=== PATIENT | female | born 1985 | race Hispanic/Latino ===

== ENCOUNTER 2021-12-05 19:41 | Emergency (ER) | payer OTHER, SELFPAY ==
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
[2021-12-05 20:02] VITALS: BP 134/67; PULSE 82; RESP 20; TEMP 37; O2SAT 99
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
== END 2021-12-05 21:10 | disposition home or self-care (01) ==
PROVIDERS: Emergency Provider Nurse Practitioner Family
DX: S63.502A Unspecified sprain of left wrist, initial encounter (principal); S66.912A Strain of unspecified muscle, fascia and tendon at wrist and hand level, left hand, initial encounter; V18.4XXA Pedal cycle driver injured in noncollision transport accident in traffic accident, initial encounter; M25.422 Effusion, left elbow
CPT/HCPCS: 73080; 73090; 99213; A4565; G0463